=== PATIENT | female | born 1970 | race Caucasian/White ===

== ENCOUNTER → 2022-04-19 | Outpatient (CLI) | payer OTHER, SELFPAY ==
[2022-04-27 18:03] LABS: HPV APTIMA, High Risk Negative (Negative)
== END | disposition home or self-care (01) ==
LOC: LABSPEC 12:07
PROVIDERS: Visit Provider Student in an Organized Health Care Education/Training Program
DX: Z01.419 Encounter for gynecological examination (general) (routine) without abnormal findings (principal)
CPT/HCPCS: 87624; 88175; G0145

== ENCOUNTER → 2022-05-26 | Outpatient (CLI) | payer OTHER, SELFPAY ==
[2022-05-26 12:20] LABS: Progesterone Level 0.84 ng/mL (See Comment); Vitamin D,25 Hydroxy 74.3 ng/mL
[2022-05-26 12:22] LABS: Hemoglobin A1c 5.3 % (3.8-5.6)
[2022-05-26 12:24] LABS: Cholesterol 241 mg/dL (200); Estradiol 267.3 pg/mL; Follicle Stimulating Hormone 24.7 mIU/mL; High Density Lipoprotein 88 mg/dL; Luteinizing Hormone 51.8 mIU/mL; T4 Free Direct 0.99 ng/dL (0.76-1.46); Thyroid Stim Hormone (TSH) 1.11 uIU/mL (0.358-3.74); Triglycerides 90 mg/dL; Very Low Density Lipoprotein 18 mg/dL (5-40)
== END | disposition home or self-care (01) ==
LOC: WOBLAB 11:11
PROVIDERS: Visit Provider Student in an Organized Health Care Education/Training Program
DX: Z01.419 Encounter for gynecological examination (general) (routine) without abnormal findings (principal)
CPT/HCPCS: 36415; 80061; 82306; 82670; 83001; 83002; 83036; 84144; 84439; 84443

== ENCOUNTER → 2023-04-22 | Outpatient (CLI) | payer OTHER, SELFPAY ==
--- NOTE | 2023-04-22 14:00 | BRBX_PTH ---
PATIENT: MABEL MONTANO LOC: [facility] U#:[id number] AGE/SX: 52/F ROOM: RE04/22/[address]: Dr. Caitie Beard MD : 1970 BED: DIS: 04/22/2023 SPEC #: [id number] RECD: 04/22/23 15:15 STATUS: DMITRY REAj #: [id number] JOSE L: 04/22/23 14:[address]: Caitie Beard DEPT: SURGICAL PATHOLOGY RECD BY: Eddie Tanner ENTERED: 04/25/23 10:50 SP TYPE: BREAST BX OTHR DR: Out of [facility] Doctor Tissues: Right breast, NOS Procedures: Surgery Specimen Level IV HEADER OPERATION: Right breast mass biopsy PRE-OP DIAGNOSIS: Right breast mass TISSUE SUBMITTED: Right breast 9:30, 5.0 cm from nipple MICROSCOPIC DIAGNOSIS Right breast mass, 9:30, 5.0 cm from nipple, core biopsy: Fragments of benign breast tissue with focal dense fibrosis and fibrocystic changes. Negative for atypia or malignancy. See comment. GERARDO:parker 04/26/2023 COMMENT Correlation with clinical, radiologic findings and appropriate follow up are necessary. MICROSCOPIC DESCRIPTION Slides are reviewed. GROSS DESCRIPTION Received in fixative is one container labeled with the patient's name and designated right breast mass. The specimen consists of multiple elongated fragments of rodriguez-yellow fibroadipose tissue that in aggregate measure 1.5 x 0.2 x 0.1 cm. The entire specimen is submitted in one cassette. / GERARDO:parker 04/25/2023 TC:5 Ischemic Time: 1 minute Fixation Time: 77.5 hours CPT: [id number]
== END | disposition home or self-care (01) ==
LOC: LABSPEC 15:25
PROVIDERS: Visit Provider Surgery
DX: N60.31 Fibrosclerosis of right breast (principal); N63.11 Unspecified lump in the right breast, upper outer quadrant
CPT/HCPCS: 88305

== ENCOUNTER → 2023-11-01 | Outpatient (CLI) | payer OTHER, SELFPAY ==
--- NOTE | 2023-11-01 09:04 | BI_ITS ---
MAMMOGRAPHY - BILATERAL DIAGNOSTIC REASON FOR EXAM: Female, 52 years old. Six-month follow-up examination for prior breast biopsy. PERTINENT HISTORY: Grandmother with breast cancer. History of rectal carcinoma. TECHNIQUE: Digital bilateral breast peg (3D mammographic acquisition) in the CC and MLO projections. 2-D mediolateral oblique (MLO) and craniocaudad (CC) views of both breasts were obtained. CAD: Full Field Digital Mammography with Computer Added Detection was performed. COMPARISON: Comparison is made with prior examination dated September 07, 2022. FINDINGS: Breast Composition: The breasts are heterogeneously dense, which may obscure small masses. There are no dominant masses or suspicious calcifications. A tissue clip marker is seen in the upper anterior lateral aspect of the right breast from prior biopsy. No other significant abnormalities are identified. BI/DIAG MAMM W/CAD, BILAT IMPRESSION: Stable bilateral diagnostic mammogram. One year follow-up recommended. (A) ASSESSMENT CATEGORY: BIRADS Category 2: Benign. A letter regarding these results will be sent to the patient by the facility within 30 days. Approximately 10% of breast cancers are not detected by mammography. A normal mammogram should not delay biopsy of a clinically suspicious abnormality. Electronically Signed: Blaze Stroud MD at 10:43 EDT ,
--- NOTE | 2023-11-01 09:44 | US_ITS ---
STUDY: ULTRASOUND BREAST - RIGHT REASON FOR EXAM: Female, 52 years old. Six-month follow-up for right breast biopsy. TECHNIQUE: Axial and longitudinal images of the RIGHT breast were performed with a high resolution ultrasound transducer. # OF IMAGES: 11 COMPARISON: Comparison is made with prior mammogram done earlier in the day. Comparison is also made with prior outside examination dated September 07, 2022. FINDINGS: RIGHT Breast: The upper outer quadrant of the right breast was examined with ultrasound. There is a 3 mm x 3 mm x 2 mm well-defined hypoechoic nodule at the 10:00 position of the breast at 5 cm from nipple. This nodular density was previously biopsied. The nodule has decreased in size. US/Breast Limited Unilateral IMPRESSION: 3 mm x 3 mm x 2 mm well-defined hypoechoic nodule at the 10:00 position breast at 5 cm from the nipple. Prior biopsy. The nodular density has decreased in size as compared to prior study. ASSESSMENT CATEGORY: BIRADS Category 2: Benign. A letter regarding these results will be sent to the patient by the facility within 30 days. Electronically Signed: Blaze Stroud MD at 14:39 EDT ,
== END | disposition home or self-care (01) ==
PROVIDERS: Referring Provider Surgery; Visit Provider Physician Assistant
DX: N63.10 Unspecified lump in the right breast, unspecified quadrant (principal)
CPT/HCPCS: 76642; 77062; 77066; G0279